=== PATIENT | male | born 1935 | race Caucasian/White ===

== ENCOUNTER 2020-11-04 16:28 | Observation (INO) | payer MEDICARE ==
[~2020-11-04] VITALS: Ht 170.2 cm; Wt 69.4 kg
[~2020-11-04 16:28] MED LIST: LOSARTAN-HCTZ1 EAC1 PO; MACROBID 100 M100 MG PO
[2020-11-04] MEDS ORDERED: DILTIAZEM HCL 5 MG/ML 5 ML VIAL IV ONE (17:00)
[2020-11-04 17:01] LABS: BASOPHILS % 0.2 % (0.0-1.0); EOSINOPHILS # (AUTO) 0.2 (0.0-0.4); EOSINOPHILS % 2.2 % (0.0-6.0); HEMATOCRIT 41.9 % (38.2-49.6); HEMOGLOBIN 13.4 g/dL (14.0-18.0); LYMPHOCYTES # (AUTO) 3.9 (1.0-3.2); LYMPHOCYTES % 40.7 % (18.0-39.1); MEAN CORPUSCULAR HEMOGLOBIN 28.3 pg (28-32); MEAN CORPUSCULAR VOLUME 88.6 fL (81-99); MONOCYTES # (AUTO) 1.6 (0.2-0.8); MONOCYTES % 16.9 % (4.4-11.3); NEUTROPHILS # (AUTO) 3.8 (2.1-6.9); NEUTROPHILS % 39.7 % (38.7-80.0); PLATELET COUNT 307 x10e3/uL (140-360); RED BLOOD COUNT 4.73 x10e6/uL (4.3-5.7)
[2020-11-04] MEDS: APIXABAN 5 MG TABLET PO SCH (17:09)
[2020-11-04 17:22] LABS: ALANINE AMINOTRANSFERASE 11 IU/L (0-55); ALBUMIN 3.8 g/dL (3.5-5.0); ALBUMIN/GLOBULIN RATIO 1.1 (0.8-2.0); ALKALINE PHOSPHATASE 89 IU/L (40-150); ANION GAP 13.3 mmol/L (8-16); BLOOD UREA NITROGEN 24 mg/dL (7-26); BUN/CREATININE RATIO 22 (6-25); CALCIUM 8.6 mg/dL (8.4-10.2); CARBON DIOXIDE 24 mmol/L (22-29); CHLORIDE 108 mmol/L (98-107); CREATININE, SERUM 1.09 mg/dL (0.72-1.25); EST GLOMERULAR FILTRATION RATE > 60 ML/MIN (60-); GLUCOSE 110 mg/dL (74-118); POTASSIUM 4.3 mmol/L (3.5-5.1); SODIUM 141 mmol/L (136-145)
[2020-11-04] MEDS ORDERED: ASPIRIN 81 MG CHEW TAB PO ONE (17:30)
[2020-11-04] MEDS: METOPROLOL TARTRATE 25 MG TAB PO SCH (17:45)
[2020-11-04] MEDS ORDERED: AMIODARONE HCL 150MG 100 ML ONE (21:38)
[2020-11-04] MEDS ORDERED: AMIODARONE 900MG 500 ML IV ONE (21:39)
[2020-11-04] MEDS ORDERED: AMIODARONE HCL 150 MG/100 ML BAG IV ONE (21:45)
[2020-11-04] MEDS: AMIODARONE HCL 900 MG in DEXTROSE 5% 500ML 500 ML IV PRN (21:56)
[2020-11-04] MEDS ORDERED: ACETAMINOPHEN 325 MG TAB PO PRN (22:00)
[2020-11-04] MEDS ORDERED: ONDANSETRON HCL INJ 2MG/ML 2ML 2 MG/ML VIAL IV PRN (22:00)
[2020-11-04 22:14] LABS: CREATINE KINASE MB 1.6 ng/mL (0-5.0)
[2020-11-04 23:15] VITALS: BP 161/105
[2020-11-05] VITALS (12 sets, daily range): BP systolic 119–145; BP diastolic 76–100
[2020-11-05] MEDS: AMIODARONE HCL 900 MG in DEXTROSE 5% 500ML 500 ML IV PRN (04:00)
[2020-11-05 04:57] LABS: BASOPHILS % 0.2 % (0.0-1.0); EOSINOPHILS # (AUTO) 0.2 (0.0-0.4); HEMATOCRIT 36.9 % (38.2-49.6); HEMOGLOBIN 12.1 g/dL (14.0-18.0); LYMPHOCYTES # (AUTO) 2.7 (1.0-3.2); LYMPHOCYTES % 27.6 % (18.0-39.1); MEAN CORPUSCULAR HEMOGLOBIN 28.5 pg (28-32); MEAN CORPUSCULAR HGB CONC 32.8 g/dL (31-35); MEAN CORPUSCULAR VOLUME 86.8 fL (81-99); MONOCYTES # (AUTO) 1.6 (0.2-0.8); MONOCYTES % 16.5 % (4.4-11.3); NEUTROPHILS # (AUTO) 5.2 (2.1-6.9); NEUTROPHILS % 53.5 % (38.7-80.0); PLATELET COUNT 259 x10e3/uL (140-360); RED BLOOD COUNT 4.25 x10e6/uL (4.3-5.7); RED CELL DISTRIBUTION WIDTH 14.6 % (11.7-14.4)
[2020-11-05 05:25] LABS: ANION GAP 11.2 mmol/L (8-16); BLOOD UREA NITROGEN 19 mg/dL (7-26); BUN/CREATININE RATIO 20 (6-25); CALCIUM 8.4 mg/dL (8.4-10.2); CARBON DIOXIDE 21 mmol/L (22-29); CHLORIDE 113 mmol/L (98-107); CREATININE, SERUM 0.96 mg/dL (0.72-1.25); EST GLOMERULAR FILTRATION RATE > 60 ML/MIN (60-); GLUCOSE 113 mg/dL (74-118); LIPASE 56 U/L (8-78); POTASSIUM 4.2 mmol/L (3.5-5.1); SODIUM 141 mmol/L (136-145)
[2020-11-05 05:44] LABS: THYROID STIMULATING HORMONE 0.001 uIU/mL (0.350-4.940)
[2020-11-05 05:49] LABS: CHOL/HDL RATIO 2.9 (3.9-4.7)
[2020-11-05 05:57] LABS: CREATINE KINASE MB 1.5 ng/mL (0-5.0)
[2020-11-05] MEDS: METOPROLOL TARTRATE 25 MG TAB PO SCH ×2 (06:00→17:01)
[2020-11-05] MEDS: APIXABAN 5 MG TABLET PO SCH ×2 (08:18→17:01)
[2020-11-05] MEDS ORDERED: CEFTRIAXONE SOD 1 GM/50 ML BAG IV SCH (15:30)
[2020-11-05] MEDS: AMIODARONE HCL 200 MG TAB PO SCH (20:58)
[2020-11-06 03:00] VITALS: BP 139/79
[2020-11-06] MEDS ORDERED: AMIODARONE HCL200 MG PO (06:50)
[2020-11-06] MEDS ORDERED: TOPROL XL50 MG PO (06:50)
[2020-11-06] MEDS ORDERED: ELIQUIS5 MG PO (06:50)
[2020-11-06] MEDS ORDERED: COZAAR25 MG PO (06:50)
[2020-11-06] MEDS ORDERED: PEPCID20 MG PO (06:50)
[2020-11-06 08:21] VITALS: BP 151/88
[2020-11-06] MEDS: AMIODARONE HCL 200 MG TAB PO SCH (08:32)
[2020-11-06] MEDS: APIXABAN 5 MG TABLET PO SCH (08:32)
[2020-11-06 08:35] VITALS: BP 151/88
[2020-11-06] MEDS ORDERED: LOSARTAN POTASSIUM 25 MG TAB PO SCH (09:00)
[2020-11-06] MEDS ORDERED: METOPROLOL SUCCINATE 50 MG TAB XL PO SCH (09:00)
== END 2020-11-06 09:33 | disposition home or self-care (01) ==
LOC: ER 16:40 → ERHOLD 17:26 → IMCU 23:20
PROVIDERS: ADMIT Internal Medicine; ATTEND Internal Medicine
DX: I11.0 Hypertensive heart disease with heart failure (principal); I48.91 Unspecified atrial fibrillation; Z87.891 Personal history of nicotine dependence; Z20.822 Contact with and (suspected) exposure to COVID-19; I44.30 Unspecified atrioventricular block; I50.21 Acute systolic (congestive) heart failure
CPT/HCPCS: 36415 ×2; 71045; 80048; 80053; 80061; 82550 ×2; 82553 ×2; 83690 ×2; 83880; 84439; 84443; 84484 ×2; 85025 ×2; 93005; 93306; 99284; G0378 ×3; U0002

== ENCOUNTER 2024-02-02 12:40 | Inpatient (IN) | payer MEDICARE ==
[~2024-02-02] VITALS: Ht 170.2 cm; Wt 51.7 kg
[~2024-02-02 12:40] MED LIST changes: +AMIODARONE HCL200 MG PO; +COZAAR25 MG PO; +ELIQUIS5 MG PO; +PEPCID20 MG PO; +TOPROL XL50 MG PO
[2024-02-02 13:31] VITALS: TEMP 97.6
[2024-02-02 14:27] LABS: BASOPHILS % 0.3 % (0.0-1.0); EOSINOPHILS % 0.2 % (0.0-6.0); HEMATOCRIT 35.9 % (38.2-49.6); HEMOGLOBIN 11.5 g/dL (14.0-18.0); LYMPHOCYTES # (AUTO) 1.7 (1.0-3.2); LYMPHOCYTES % 19.2 % (18.0-39.1); MEAN CORPUSCULAR VOLUME 87.6 fL (81-99); MONOCYTES # (AUTO) 1.7 (0.2-0.8); MONOCYTES % 19.8 % (4.4-11.3); NEUTROPHILS # (AUTO) 5.2 (2.1-6.9); NEUTROPHILS % 60.3 % (38.7-80.0); PLATELET COUNT 335 x10e3/uL (140-360); RED CELL DISTRIBUTION WIDTH 15.9 % (11.7-14.4)
[2024-02-02] MEDS: SODIUM CHLORIDE 0.9% 1000ML 1,000 ML IV STA ×2 (14:36→15:23)
[2024-02-02] MEDS: ONDANSETRON HCL INJ 2MG/ML 2ML 2 MG/ML VIAL IV STA (14:37)
[2024-02-02 14:51] LABS: INFLUENZAE A&B ANTIGEN (RAPID) NEGATIVE (NEGATIVE); RESPIRATORY SYNC. VIRUS NEGATIVE (NEGATIVE)
[2024-02-02 14:52] LABS: INR 1.08; PARTIAL THROMBOPLASTIN TIME 26.6 seconds (23.8-35.5); PROTHROMBIN TIME 14.8 seconds (11.9-14.5)
[2024-02-02 15:02] LABS: ALBUMIN 3.2 g/dL (3.5-5.0); ANION GAP 19.4 mmol/L (8-16); BILIRUBIN,TOTAL 1.6 mg/dL (0.2-1.2); CALCIUM 9.9 mg/dL (8.4-10.2); MAGNESIUM 1.9 MG/DL (1.3-2.1); POTASSIUM 4.4 mmol/L (3.5-5.1); TOTAL PROTEIN 6.5 g/dL (6.5-8.1)
[2024-02-02] MEDS ORDERED: IOPAMIDOL 370 MG/ML 100 ML INFUS..BTL INJ ONE (15:34)
[2024-02-02 17:07] LABS: TROPONIN I 0.066 ng/mL (0-0.300)
[2024-02-02] MEDS ORDERED: ONDANSETRON HCL INJ 2MG/ML 2ML 2 MG/ML VIAL IV PRN (17:15)
[2024-02-02 17:33] VITALS: PULSE 89; RESP 18; O2SAT 96
[2024-02-02 17:33] LABS: BILIRUBIN,URINE 1+ (NEGATIVE); CLARITY,URINE CLEAR (CLEAR); COLOR,URINE YELLOW (YELLOW); GLUCOSE, URINE NEGATIVE (NEGATIVE); KETONES,URINE 1+ (NEGATIVE); LEUKOCYTE ESTERASE ,URINE NEGATIVE (NEGATIVE); NITRITE,URINE NEGATIVE (NEGATIVE); PH,URINE 5 (5 - 7); PROTEIN,URINE DIPSTICK 2+ (NEGATIVE); URINE UROBILINOGEN 0.2 mg/dL (0.2 - 1)
[2024-02-02] MEDS: SODIUM CHLORIDE 0.9% 1000ML 1,000 ML IV SCH (18:00)
[2024-02-02] MEDS: PROPRANOLOL HCL 1 MG/ML VIAL INJ ONE (18:00)
[2024-02-02 18:01] LABS: BACTERIA,URINE MODERATE /HPF; EPITHELIAL CELLS,URINE FEW /LPF; HYALINE CASTS 0-1 (0-1)
[2024-02-02 18:02] LABS: MUCUS,URINE FEW (RARE)
[2024-02-02] MEDS: METHIMAZOLE 5 MG TAB PO SCH (18:36)
[2024-02-02] MEDS: PROPRANOLOL HCL 40 MG TAB PO ONE (18:37)
[2024-02-02 18:41] LABS: FREE T4 (FREE THYROXINE) 3.72 ng/dL (0.8-1.8); T3 UPTAKE 34.38 % (22.5-37.0)
[2024-02-02 18:42] LABS: FREE THYROXINE INDEX 8.2512034 (1.4-3.8); T4 (THYROXINE) > 24.00 ug/dL (4.5-10.9)
[2024-02-02 19:30] VITALS: BP 142/93; PULSE 75; PULSE 77; RESP 22; RESP 28; TEMP 97.8; O2SAT 95
[2024-02-02 20:00] VITALS: BP 159/71; PULSE 75; RESP 22; TEMP 97.8; O2SAT 96
[2024-02-02 20:07] VITALS: PULSE 81; RESP 20; O2SAT 96
[2024-02-03] VITALS (12 sets, daily range): BP systolic 131–170; BP diastolic 52–83; PULSE 60–87; RESP 18–22; TEMP 97.7–98.7; O2SAT 94–100
[2024-02-03 02:07] LABS: TROPONIN I 0.049 ng/mL (0-0.300)
[2024-02-03] MEDS ORDERED: SODIUM CHLORIDE 0.9% 1000ML 1,000 ML IV SCH (05:30)
[2024-02-03 07:42] LABS: BASOPHILS % 0.2 % (0.0-1.0); HEMATOCRIT 34.5 % (38.2-49.6); HEMOGLOBIN 10.5 g/dL (14.0-18.0); LYMPHOCYTES % 17.2 % (18.0-39.1); MEAN CORPUSCULAR HEMOGLOBIN 27.7 pg (28-32); MEAN CORPUSCULAR HGB CONC 30.4 g/dL (31-35); MONOCYTES # (AUTO) 2.6 (0.2-0.8); PLATELET COUNT 256 x10e3/uL (140-360); RED BLOOD COUNT 3.79 x10e6/uL (4.3-5.7); RED CELL DISTRIBUTION WIDTH 16.5 % (11.7-14.4); WHITE BLOOD COUNT 11.58 x10e3/uL (4.8-10.8)
[2024-02-03 08:18] LABS: ALBUMIN 2.8 g/dL (3.5-5.0); ANION GAP 21.5 mmol/L (8-16); BILIRUBIN,TOTAL 0.6 mg/dL (0.2-1.2); CALCIUM 8.8 mg/dL (8.4-10.2); CREATININE, SERUM 1.16 mg/dL (0.72-1.25); TOTAL PROTEIN 5.6 g/dL (6.5-8.1)
[2024-02-03 08:21] LABS: POTASSIUM 5.5 mmol/L (3.5-5.1)
[2024-02-03 08:43] LABS: TROPONIN I 0.043 ng/mL (0-0.300)
[2024-02-03] MEDS: FAMOTIDINE 20 MG TAB PO SCH (09:00)
[2024-02-03 09:18] LABS: LYMPHOCYTES % (MANUAL) 17 % (19-48); MONOCYTES % (MANUAL) 12 % (3.4-9.0); NEUTROPHILS % (MANUAL) 68 % (40-74); NUCLEATED RED BLOOD CELLS 4; REACTIVE LYMPHOCYTES 3
[2024-02-03 09:19] LABS: PLATELET ESTIMATE ADEQUATE; PLATELET MORPHOLOGY COMMENT RARE EDTA CLUMPING; RBC MORPHOLOGY COMMENT NORMAL
[2024-02-03] MEDS: LOSARTAN POTASSIUM 25 MG TAB PO SCH (10:06)
[2024-02-03] MEDS: METOPROLOL SUCCINATE 50 MG TAB XL PO SCH (10:06)
[2024-02-03] MEDS: APIXABAN 5 MG TABLET PO SCH (10:06)
[2024-02-03] MEDS: AMIODARONE HCL 200 MG TAB PO SCH (10:07)
[2024-02-03] MEDS ORDERED: ALBUTEROL/IPRATROPIUM 3 ML NEB NEB PRN (10:30)
[2024-02-03] MEDS ORDERED: MELATONIN 3 MG TAB PO PRN (10:30)
[2024-02-03] MEDS ORDERED: DOCUSATE SODIUM 100 MG CAP PO PRN (10:30)
[2024-02-03] MEDS ORDERED: SIMETHICONE 80 MG CHEW PO PRN (10:30)
[2024-02-03] MEDS: SODIUM BICARBONATE 8.4% SYRING 100 ML in SODIUM CHLORIDE 0.45% 1,000 ML IV SCH (13:11)
[2024-02-03] MEDS: DEXAMETHASONE SOD PHOS 10 MG/1 ML VIAL IV SCH (13:32)
[2024-02-03] MEDS ORDERED: REMDESIVIR 100MG 100 MG in SODIUM CHLORIDE 0.9% 100 ML IV SCH (17:15)
[2024-02-03] MEDS ORDERED: REMDESIVIR 200MG 200 MG in SODIUM CHLORIDE 0.9% 100 ML IV ONE (17:15)
[2024-02-03] MEDS: FUROSEMIDE INJ 10 MG/ML 4 ML VIAL IV SCH (18:36)
[2024-02-03] MEDS: REMDESIVIR 100MG 100 MG in SODIUM CHLORIDE 0.9% 100 ML IV SCH ×2 (18:37→19:24)
[2024-02-04] VITALS (10 sets, daily range): BP systolic 109–157; BP diastolic 55–98; PULSE 69–89; RESP 18–20; TEMP 97.2–98.7; O2SAT 94–100
[2024-02-04 06:02] LABS: HEMATOCRIT 37.1 % (38.2-49.6); HEMOGLOBIN 11.3 g/dL (14.0-18.0); LYMPHOCYTES # (AUTO) 1.2 (1.0-3.2); LYMPHOCYTES % 30.5 % (18.0-39.1); MEAN CORPUSCULAR HEMOGLOBIN 27.8 pg (28-32); MEAN CORPUSCULAR HGB CONC 30.5 g/dL (31-35); MEAN CORPUSCULAR VOLUME 91.2 fL (81-99); MONOCYTES # (AUTO) 0.2 (0.2-0.8); MONOCYTES % 5.6 % (4.4-11.3); NEUTROPHILS # (AUTO) 2.5 (2.1-6.9); NEUTROPHILS % 63.6 % (38.7-80.0); PLATELET COUNT 281 x10e3/uL (140-360); RED BLOOD COUNT 4.07 x10e6/uL (4.3-5.7); RED CELL DISTRIBUTION WIDTH 16.1 % (11.7-14.4); WHITE BLOOD COUNT 3.93 x10e3/uL (4.8-10.8)
[2024-02-04 06:34] LABS: ANION GAP 19.1 mmol/L (8-16); CALCIUM 9.1 mg/dL (8.4-10.2); CREATININE, SERUM 1.71 mg/dL (0.72-1.25); POTASSIUM 5.1 mmol/L (3.5-5.1)
[2024-02-04 06:50] LABS: FREE T4 (FREE THYROXINE) 2.91 ng/dL (0.8-1.8)
[2024-02-04 07:07] LABS: TROPONIN I 0.036 ng/mL (0-0.300)
[2024-02-04] MEDS ORDERED: REMDESIVIR 200MG 200 MG in SODIUM CHLORIDE 0.9% 100 ML IV ONE (09:00)
[2024-02-04] MEDS ORDERED: SODIUM CHLORIDE 0.9% 100 ML ONE (16:13)
[2024-02-05] VITALS (11 sets, daily range): BP systolic 128–177; BP diastolic 68–97; PULSE 64–81; RESP 16–20; TEMP 97.6–98.5; O2SAT 94–100
[2024-02-05] MEDS: METOPROLOL TARTRATE INJ 1 MG/ML VIAL IV PRN (01:02)
[2024-02-05 06:02] LABS: HEMATOCRIT 33.5 % (38.2-49.6); HEMOGLOBIN 10.8 g/dL (14.0-18.0); LYMPHOCYTES % 15.1 % (18.0-39.1); MEAN CORPUSCULAR HEMOGLOBIN 27.6 pg (28-32); MEAN CORPUSCULAR HGB CONC 32.2 g/dL (31-35); MEAN CORPUSCULAR VOLUME 85.5 fL (81-99); MONOCYTES # (AUTO) 1.3 (0.2-0.8); MONOCYTES % 19.7 % (4.4-11.3); NEUTROPHILS # (AUTO) 4.2 (2.1-6.9); PLATELET COUNT 296 x10e3/uL (140-360); RED BLOOD COUNT 3.92 x10e6/uL (4.3-5.7); RED CELL DISTRIBUTION WIDTH 15.6 % (11.7-14.4); WHITE BLOOD COUNT 6.41 x10e3/uL (4.8-10.8)
[2024-02-05 06:32] LABS: ANION GAP 14.1 mmol/L (8-16); CALCIUM 8.8 mg/dL (8.4-10.2); CREATININE, SERUM 2.09 mg/dL (0.72-1.25); POTASSIUM 5.1 mmol/L (3.5-5.1)
[2024-02-05] MEDS ORDERED: REMDESIVIR 100MG 100 MG in SODIUM CHLORIDE 0.9% 100 ML IV SCH (09:00)
[2024-02-05] MEDS ORDERED: SODIUM CHLORIDE 0.45% 0 ML ONE (19:46)
[2024-02-06] VITALS (10 sets, daily range): BP systolic 130–170; BP diastolic 70–90; PULSE 61–103; RESP 17–20; TEMP 97.6–98; O2SAT 97–100
[2024-02-06] MEDS ORDERED: ONDANSETRON HCL 4 MG ORAL DISINTEGRATING TAB PO PRN (07:30)
[2024-02-06 10:35] LABS: POTASSIUM 4.9 mmol/L (3.5-5.1)
[2024-02-06 10:36] LABS: ANION GAP 15.9 mmol/L (8-16); CALCIUM 8.8 mg/dL (8.4-10.2); CREATININE, SERUM 2.03 mg/dL (0.72-1.25)
[2024-02-06] MEDS: METOPROLOL SUCCINATE 25 MG TAB XL PO ONE (11:35)
[2024-02-06] MEDS: METHIMAZOLE 5 MG TAB PO SCH (17:03)
[2024-02-06] MEDS: INSULIN LISPRO 100 UNIT/1 ML 3ML VIAL SQ SCH (17:30)
[2024-02-07 01:14] VITALS: BP 158/71; PULSE 57; RESP 18; TEMP 98.6; O2SAT 97
[2024-02-07 05:12] VITALS: BP 156/93; PULSE 58; RESP 20; TEMP 97.1; O2SAT 97
[2024-02-07 07:28] VITALS: BP 175/98; PULSE 62; RESP 18; TEMP 97.4; O2SAT 100
[2024-02-07 07:31] VITALS: PULSE 65; RESP 20; O2SAT 97
[2024-02-07] MEDS ORDERED: METOPROLOL SUCCINATE 25 MG TAB XL PO SCH (09:00)
[2024-02-07] MEDS ORDERED: METOPROLOL SUCCINATE 50 MG TAB XL PO SCH (09:00)
[2024-02-07 09:10] VITALS: BP 175/98; PULSE 65; RESP 20; TEMP 97.4; O2SAT 97
[2024-02-07 10:03] LABS: BASOPHILS % 0.1 % (0.0-1.0); HEMATOCRIT 36.3 % (38.2-49.6); HEMOGLOBIN 11.7 g/dL (14.0-18.0); LYMPHOCYTES # (AUTO) 0.8 (1.0-3.2); LYMPHOCYTES % 7.2 % (18.0-39.1); MEAN CORPUSCULAR HEMOGLOBIN 27.9 pg (28-32); MEAN CORPUSCULAR HGB CONC 32.2 g/dL (31-35); MEAN CORPUSCULAR VOLUME 86.4 fL (81-99); MONOCYTES # (AUTO) 1.7 (0.2-0.8); MONOCYTES % 14.4 % (4.4-11.3); PLATELET COUNT 309 x10e3/uL (140-360); RED CELL DISTRIBUTION WIDTH 15.7 % (11.7-14.4); WHITE BLOOD COUNT 11.49 x10e3/uL (4.8-10.8)
[2024-02-07 10:22] LABS: ANION GAP 16.9 mmol/L (8-16); POTASSIUM 4.9 mmol/L (3.5-5.1)
[2024-02-07 10:23] LABS: CALCIUM 8.3 mg/dL (8.4-10.2); CREATININE, SERUM 2.06 mg/dL (0.72-1.25)
== END 2024-02-07 10:55 | disposition left against medical advice (07) | DRG 871 ==
LOC: ER 13:15 → ERHOLD 17:18 → MED/SURG2 19:45
PROVIDERS: ADMIT Internal Medicine; ATTEND Internal Medicine
PROC: XW033E5 Introduction of Remdesivir Anti-infective into Peripheral Vein, Percutaneous Approach, New Technology Group 5 (ICD-10-PCS; principal; 2024-02-03)
DX: A41.89 Other specified sepsis (principal); I50.21 Acute systolic (congestive) heart failure; J12.82 Pneumonia due to coronavirus disease 2019; U07.1 COVID-19; J96.01 Acute respiratory failure with hypoxia; Z68.1 Body mass index [BMI] 19.9 or less, adult; N39.0 Urinary tract infection, site not specified; E87.20 Acidosis, unspecified; N17.9 Acute kidney failure, unspecified; E44.0 Moderate protein-calorie malnutrition; I67.82 Cerebral ischemia; E05.90 Thyrotoxicosis, unspecified without thyrotoxic crisis or storm; E86.0 Dehydration; I11.0 Hypertensive heart disease with heart failure; I48.91 Unspecified atrial fibrillation; I27.20 Pulmonary hypertension, unspecified; R63.0 Anorexia; R63.4 Abnormal weight loss; E87.5 Hyperkalemia; R73.9 Hyperglycemia, unspecified; Z71.3 Dietary counseling and surveillance; T38.0X5A Adverse effect of glucocorticoids and synthetic analogues, initial encounter; Y92.230 Patient room in hospital as the place of occurrence of the external cause; Z87.891 Personal history of nicotine dependence; R53.1 Weakness; R00.0 Tachycardia, unspecified; Z53.29 Procedure and treatment not carried out because of patient's decision for other reasons; R53.81 Other malaise; N40.0 Benign prostatic hyperplasia without lower urinary tract symptoms; I25.10 Atherosclerotic heart disease of native coronary artery without angina pectoris; K57.30 Diverticulosis of large intestine without perforation or abscess without bleeding; Z79.01 Long term (current) use of anticoagulants; Z79.899 Other long term (current) drug therapy
CPT/HCPCS: 36415; 70450; 70551; 71045; 71260; 74177; 80048; 80053; 81001; 82550; 82948; 83036; 83605; 83690; 83735; 83880; 84436; 84439; 84443; 84479; 84481; 84484; 85025; 85610; 85730; 86376; 87040; 87086; 87400; 87420; 93005; 93306; 94760; 94799; 99284; J0248; J0696; J1100; J1800; J1940; J2405; J2470; J7030; J7050; Q9967; U0002